=== PATIENT | female | born 1990 | race Caucasian/White ===

== ENCOUNTER 2017-03-20 22:03 | Emergency (ER) | payer SELFPAY ==
[~2017-03-20] VITALS: Ht 167.6 cm; Wt 88.0 kg
[2017-03-20 22:05] VITALS: BP 143/87; PULSE 73; RESP 16; TEMP 98.1; O2SAT 100
[2017-03-20] MEDS ORDERED: DICL75TA PO (22:26)
[2017-03-20] MEDS ORDERED: CYCL1TAB29 PO (22:26)
--- NOTE | 2017-03-20 22:28 | PD ---
HPI Chief Complaint: Back/ Neck Pain or Injury Time Seen by Provider: 22:28 Travel History International Travel<30 days: No Contact w/Intl Traveler<30days: No Traveled to known affect area: No History of Present Illness HPI 27-year-old white female presents to emergency Department with complaints of lower back pain over one week. She states that she did some lifting at home and aggravated her back. She states that she's had back problems in the past. She states that she was doing activities at work today and bent over and had difficulty standing up. She states that her back Locked up. She denies any acute bowel or bladder changes. She denies any focal numbness or tingling. She states the pain is mild but can be moderate to severe or certain movements. Feels some relief of the remaining still. PFSH Past Medical History Medical History: Denies Significant Hx Tetanus Vaccination: < 5 Years ?: Not LMP: yesterday Past Surgical History Surgical History: No Previous Surgery Social History Alcohol Use: No Tobacco Use: No Substance Use: No Allergies-Medications (Allergen,Severity, Reaction): Coded Allergies: Amoxicillin (Verified Allergy, Intermediate, 03/20/17) Reported Meds & Prescriptions Reported Meds & Active Scripts Active Flexeril (Cyclobenzaprine HCl) 10 Mg Tab 10 Mg PO TID Diclofenac Sodium DR (Diclofenac Sodium) 75 Mg Tabdr 75 Mg PO BID Review of Systems Except as stated in HPI: all other systems reviewed are Neg Physical Exam Narrative GENERAL: Well-developed, well-nourished in no apparent distress. Nontoxic appearing. HEAD: Normocephalic, atraumatic. EYES: Pupils equal round and reactive. Extraocular motions intact. No scleral icterus. No injection or drainage. ENT: Nose clear. Throat without erythema, tonsillar hypertrophy or exudate. Uvula midline. Airway patent. NECK: Trachea midline. Supple, nontender, moves head freely. No central bony tenderness or spasm. CARDIOVASCULAR: Regular rate and rhythm without murmurs, gallops, or rubs. RESPIRATORY: Clear to auscultation. Breath sounds equal bilaterally. No wheezes , rales, or rhonchi. GASTROINTESTINAL: Abdomen soft, non-tender, nondistended. No hepato-splenomegaly , or palpable masses. No guarding. EXTREMITIES: No clubbing, cyanosis, or edema. No joint tenderness. BACK: No central bony tenderness to palpation of the dorsal lumbar spine. Without deformity. No flank tenderness. Patient is able to heel and toe stand. She is able to bend forward to 90 and touch her toes. She complains of bilateral paralumbar tenderness. No saddle anesthesia. NEUROLOGICAL: Awake, alert and oriented x 3 .Cranial nerves grossly intact. Motor and sensory grossly within normal limits. Normal speech. Data Data Last Documented VS Vital Signs Date Time Temp Pulse Resp B/P Pulse Ox O2 Delivery O2 Flow Rate FiO2 03/20/17 22:05 98.1 73 16 143/87 100 Orders Naproxen (Naprosyn) (03/20/17 22:30) Cyclobenzaprine (Flexeril) (03/20/17 22:30) MDM Medical Decision Making Medical Screen Exam Complete: Yes Emergency Medical Condition: Yes Medical Record Reviewed: Yes Differential Diagnosis MDM: High Differential diagnoses: AAA,Fracture, sprain, strain, HNP, nerve or vascular injury, epidural abscess, pilonidal cyst, pyelonephritis, UTI, nephrolithiasis, ureterolithiasis Narrative Course Patient is given Naprosyn 500 mg of Flexeril 10 mg by mouth. This is acute lumbar strain Diagnosis Primary Impression: aCUTE LUMBAR SPRAIN Patient Instructions: General Instructions Departure Forms: Tests/Procedures, Work Release Special Instructions: No work 3 days. Then no bending or lifting greater than 25 pounds for 5 days. No climbing. No repetitive bending. Additional Instructions: Rest. Ice for the next 3 days followed by heat . Flexeril and Voltaren. Follow-up with a primary care doctor in one week. Return to the ER for emergencies. Med/Other Pt SpecificInfo: Prescription(s) given Scripts Cyclobenzaprine (Flexeril)10 Mg Tab10 Mg PO TID #30 TAB Prov:Ant Huddleston MD 03/20/[address] 75 Mg Tabdr75 Mg PO BID #20 TAB Prov:Ant Huddleston MD 03/20/17 Disposition: 01 DISCHARGE HOME Condition: Stable Lawrence Templeton Mar 20, 2017 22:28
[2017-03-20] MEDS ORDERED: NAPROXEN 500 MG TAB PO ONE (22:30)
[2017-03-20] MEDS ORDERED: CYCLOBENZAPRINE HCL 10 MG TAB PO ONE (22:30)
== END 2017-03-20 22:49 | disposition home or self-care (01) ==
LOC: NEPK 22:03
DX: S33.5XXA Sprain of ligaments of lumbar spine, initial encounter (principal); X50.9XXA Other and unspecified overexertion or strenuous movements or postures, initial encounter; Y92.009 Unspecified place in unspecified non-institutional (private) residence as the place of occurrence of the external cause
CPT/HCPCS: 99282

== ENCOUNTER 2018-03-05 17:46 | Emergency (ER) | payer SELFPAY ==
[~2018-03-05 17:46] MED LIST: CYCL10TA PO; DICL75TA PO
[2018-03-05 18:15] VITALS: BP 138/73; PULSE 110; RESP 16; TEMP 98.2; O2SAT 100
[2018-03-05] MEDS ORDERED: MEDR4PAK PO (18:51)
[2018-03-05] MEDS ORDERED: ROBA500T PO (18:51)
[2018-03-05] MEDS ORDERED: IBUP1TAB7 PO (18:51)
--- NOTE | 2018-03-05 18:52 | PD ---
HPI Chief Complaint: Musculoskeletal Complaint Time Seen by Provider: 18:39 Travel History International Travel<30 days: No Contact w/Intl Traveler<30days: No Traveled to known affect area: No History of Present Illness HPI 28-year-old female presents to the emergency department with complaint of right lower back pain that radiates down the back of her leg causing her right calf to cramp 1 week. Denies injury. Has history of back injury one year ago, but has not had any problems with her back and since her injury was left-sided. Denies encopresis, incontinence, saddle anesthesias. Denies IV drug use, cancer. Denies fever, vomiting, abdominal pain, change in urine or stool. Reports feeling some numbness and tingling in her right foot at times, depending upon her positioning. Otherwise denies paresthesias, loss of sensation, decreased range of motion, decreased strength all extremities. Denies history of DVT. Denies leg edema, recent immobilization, recent surgeries. Has been taking 800 mg ibuprofen for pain with good relief. Has also taken Flexeril 10 mg that she had from an old prescription from her old back injury. Last took ibuprofen last night. Last took Flexeril this morning at 10 AM. Rates pain 5/10. Worse with sitting to standing position. Better with standing and lying on her stomach. No primary care provider. Allergies to amoxicillin. Denies significant past medical history. Has no other medical complaints. No other modifying factors or associated signs and symptoms. PFSH Past Medical History Medical History: Denies Significant Hx Asthma: Yes Diminished Hearing: Yes (glasses) Tetanus Vaccination: < 5 Years ?: Not Past Surgical History Surgical History: No Previous Surgery Social History Alcohol Use: No Tobacco Use: No Substance Use: No Allergies-Medications (Allergen,Severity, Reaction): Coded Allergies: amoxicillin (Unverified Allergy, Intermediate, 03/05/18) Reported Meds & Prescriptions Reported Meds & Active Scripts Active Robaxin (Methocarbamol) 500 Mg Tab 500 Mg PO QID PRN Ibuprofen 800 Mg Tab 800 Mg PO Q6HR PRN Medrol Dosepak (Methylprednisolone) 4 Mg Dspk 4 Mg PO DIRECTED Per Pharmacist direction Review of Systems Except as stated in HPI: all other systems reviewed are Neg Physical Exam Narrative GENERAL: Well-nourished, well-developed female patient, in no acute distress; afebrile, nontoxic-appearing SKIN: Warm and dry. HEAD: Atraumatic. Normocephalic. EYES: Pupils equal and round. No scleral icterus. No injection or drainage. ENT: Mucosa pink and moist. Airway patent. NECK: Trachea midline. CARDIOVASCULAR: Regular rate. RESPIRATORY: No accessory muscle use. GASTROINTESTINAL: Obese MUSCULOSKELETAL: Bilateral lower extremities supple and non-tense with 2+ pedal pulses and sensory intact; with full range of motion and 5/5 strength. 2 + DTRs bilaterally. Active dorsiflexion and extension of bilateral feet. Right straight leg raise is positive for low back pain. No reproducible tenderness to the right calf. No leg edema or erythema. Ambulatory in room with normal gait. Sitting up in bed at 90. No obvious deformities. No clubbing. No cyanosis. No edema. BACK: No midline point tenderness on palpation of the lumbar spine. Tenderness on palpation of right lumbar iliosacral area. No obvious deformities. NEUROLOGICAL: Awake and alert. Oriented 3. No obvious cranial nerve deficits. Motor grossly within normal limits. Normal speech. Moves all extremities. 5/5 strength to all extremities. Sensory intact. PSYCHIATRIC: Appropriate mood and affect; insight and judgment normal. Data Data Last Documented VS Vital Signs Date Time Temp Pulse Resp B/P (MAP) Pulse Ox O2 Delivery O2 Flow Rate FiO2 03/05/18 18:15 98.2 110 16 138/73 (94) 100 Orders Orders Ed Discharge Order (03/05/18 18:52) Methocarbamol (Robaxin) (03/05/18 19:00) Ibuprofen (Motrin) (03/05/18 19:00) MDM Medical Decision Making Medical Screen Exam Complete: Yes Emergency Medical Condition: Yes Medical Record Reviewed: Yes Differential Diagnosis Right low back pain with sciatica, low back pain, lumbar radiculopathy, leg cramps, less likely DVT Narrative Course 28-year-old female physical exam and HPI consistent with right-sided low back pain with sciatica. Denies encopresis, incontinence, saddle anesthesias. Denies IV drug use or cancer. No midline tenderness on palpation of the lumbar spine. Patient is able to train the room with a normal gait. Neuro exam is unremarkable. Ibuprofen and Robaxin administered in the ER. Ibuprofen, Robaxin , Medrol Dosepak prescribed for home. Instructed patient to follow up with primary care provider. Patient verbalizes understanding and agreement with treatment plan. Patient is medically cleared and stable for discharge. Discussed reasons to return to the emergency department. Patient agrees with treatment plan. The patients vital signs are stable and the patient is stable for outpatient follow-up and treatment. Patient discharged home, stable and in no acute distress. Diagnosis Primary Impression: Right-sided low back pain with sciatica Qualified Codes: M54.41 - Lumbago with sciatica, right side Referrals: [facility] Primary Care Physician Patient Instructions: Acute Low Back Pain (ED), General Instructions, Sciatica (ED) Departure Forms: Tests/Procedures, Work Release Enter return to work date: Mar 10, 2018 Additional Instructions: Tylenol or ibuprofen as directed and as needed for pain Robaxin as prescribed and as needed for muscle spasms Heating pad and/or ice to affected area to reduce pain Avoid aggravating activities; increase activity as tolerated Follow-up with primary care provider Return to emergency department immediately with worsening of symptoms Med/Other Pt SpecificInfo: Prescription(s) given Scripts Methocarbamol (Robaxin) 500 Mg Tab 500 MG PO QID Y for MUSCLE SPASM, #30 TAB 0 Refills Prov: Adelaide Jensen 03/05/18 Ibuprofen (Ibuprofen) 800 Mg Tab 800 MG PO Q6HR Y for PAIN, #30 TAB 0 Refills Prov: Adelaide Jensen 03/05/18 Methylprednisolone Dosepak (Medrol Dosepak) 4 Mg Dspk 4 MG PO DIRECTED, #1 DSPK 0 Refills Per Pharmacist direction Prov: Adelaide Jensen 03/05/18 Disposition: 01 DISCHARGE HOME Condition: Stable Adelaide Jensen Mar 05, 2018 18:52
[2018-03-05] MEDS ORDERED: METHOCARBAMOL 500 MG TAB PO ONE (19:00)
[2018-03-05] MEDS ORDERED: IBUPROFEN 800 MG TAB PO ONE (19:00)
== END 2018-03-05 19:18 | disposition home or self-care (01) ==
LOC: NEPK 17:46
DX: M54.41 Lumbago with sciatica, right side (principal); J45.909 Unspecified asthma, uncomplicated; Z88.0 Allergy status to penicillin
CPT/HCPCS: 99283